=== PATIENT | female | born 1985 ===

== ENCOUNTER 2022-04-21 11:06 | Emergency (ER) | payer OTHER, BC ==
[2022-04-21] MEDS ORDERED: HYDROcodone/Acetaminophen 5/325 mg Tablet ONE (13:20)
== END 2022-04-21 13:32 | disposition home or self-care (01) ==
LOC: ERS 11:06
DX: S93.402A Sprain of unspecified ligament of left ankle, initial encounter (principal); W01.0XXA Fall on same level from slipping, tripping and stumbling without subsequent striking against object, initial encounter